=== PATIENT | male | born 1985 | race Caucasian/White ===

== ENCOUNTER 2023-02-16 17:43 | Emergency (ER) | payer SELFPAY ==
[2023-02-16 18:52] VITALS: BP_SYST 144
[2023-02-16] MEDS ORDERED: IBUPROFEN 800 MG TABLET PO ONE (19:30)
[2023-02-16] MEDS ORDERED: DICL20GE TP (20:00)
== END 2023-02-16 20:13 | disposition home or self-care (01) ==
LOC: SED 17:43
DX: S63.287A Dislocation of proximal interphalangeal joint of left little finger, initial encounter (principal); Z79.899 Other long term (current) drug therapy; W21.01XA Struck by football, initial encounter; Y93.61 Activity, american tackle football; Y92.89 Other specified places as the place of occurrence of the external cause; Y99.8 Other external cause status
CPT/HCPCS: 73140-TC; 99284